=== PATIENT | female | born 1950 | race American Indian/Alaskan Native ===

== ENCOUNTER 2017-11-17 07:35 | Outpatient (CLI) | payer MEDICARE ==
--- NOTE | 2017-11-17 07:47 | XRay Report ---
LEFT KNEE: Knee pain. Standing views obtained. The bony architecture is intact without evidence of fracture or dislocation. No significant soft tissue abnormality is seen. IMPRESSION: Normal left knee.
== END 2017-11-17 07:36 | disposition home or self-care (01) ==
LOC: SPVIMAG 07:35
PROVIDERS: ATTEND Orthopaedic Surgery
DX: M25.562 Pain in left knee (principal)